=== PATIENT | female | born 1955 | race Caucasian/White ===

== ENCOUNTER 2024-02-18 12:38 | Outpatient (OUT) | payer OTHER, SELFPAY ==
[2024-02-18 12:56] LABS: Basophils Percent Auto 0.3 % (0.2-2.0); Eosinophils Absolute Auto 0.1 10^3/uL (0.0-0.7); Eosinophils Percent Auto 1.2 % (0.9-7.0); Hematocrit 38.3 % (36.0-48.0); Hemoglobin 12.2 g/dL (12.0-16.0); Immature Granulocytes Abs Auto 0.02 10^3/uL (0.00-0.03); Immature Granulocytes Pct Auto 0.3 % (0.0-0.5); Lymphocytes Absolute Auto 1.4 10^3/uL (1.2-3.8); Lymphocytes Percent Auto 22.4 % (20.5-60.0); Mean Corpuscular HGB Conc 31.9 g/dL (29.9-35.2); Mean Corpuscular Hemoglobin 31.1 pg (26.7-34.0); Mean Corpuscular Volume 97.7 fL (81.0-99.0); Mean Platelet Volume 9.8 fL (9.5-13.5); Monocytes Absolute Auto 0.4 10^3/uL (0.3-0.8); Monocytes Percent Auto 6.8 % (1.7-12.0); Neutrophils Absolute Auto 4.4 10^3/uL (1.4-6.5); Platelet Count 351 10^3/uL (150-450); Red Blood Count 3.92 10^6/uL (4.20-5.40); White Blood Count 6.4 10^3/uL (4.0-11.0)
--- NOTE | 2024-02-18 12:57 | CT_ITS ---
The [address] [address] Patient Name: KOLTON HOLLOWAY MRN: [id number] date: 1955 Sex: F Assigned Patient Location: CT Current Patient Location: Accession/Order Number: [id number] Exam Date: 02/18/2024 13:25 Report Date: 02/19/2024 10:57 At the request of: BRIDGER SERRANO Procedure: CT chest w con EXAMINATION: CT chest w con HISTORY: Hemoptysis , Fatigue, Dyspnea COMPARISON: No relevant comparison available. TECHNIQUE: Multi-planar CT images were created with IV contrast. Axial, Coronal, and Sagittal images. Dose reduction techniques were achieved by using automated exposure control and/or adjustment of mA and/or kV according to patient size and/or use of iterative reconstruction technique. FINDINGS: LUNGS: Bilateral multifocal groundglass infiltrates with the largest area in the right upper lobe measuring 7.1 cm by. A few scattered subcentimeter pulmonary nodules the largest measuring 6 x 3 mm, subpleural superior segment of the right lower lobe axial image 46 PLEURA: No mass, effusion, or pneumothorax. VASCULATURE: No abnormality. ALAN: No mass or adenopathy. MEDIASTINUM: No mass or adenopathy. CARDIAC: No enlargement, pericardial thickening, or significant calcification. AORTA: No aneurysm or dissection. CHEST WALL: No mass or axillary adenopathy. BONES: No bone lesion or fracture. LIMITED ABDOMEN: No suspicious findings. Limited images of the upper abdomen. OTHER: Negative. CT/CT chest w con IMPRESSION: Multifocal bilateral infiltrates, consider an atypical or viral pneumonia Electronically authenticated by: ADIS PATEL Date: 02/19/2024 10:57
[2024-02-18 13:13] LABS: Alanine Aminotransferase 16 U/L (14-59); Albumin Globulin Ratio 0.7; Albumin Level 2.8 g/dL (3.4-5.0); Alkaline Phosphatase 90 U/L (46-116); Anion Gap 14.5; Aspartate Amino Transferase 23 U/L (15-37); BUN Creatinine Ratio 9.3; Calcium 9.2 mg/dL (8.5-10.1); Carbon Dioxide 25.3 mmol/L (21.0-32.0); Chloride 103 mmol/L (98-107); Estimated GFR (African America >60 (>=60); Estimated GFR (Non-African Ame 51 (>=60); Globulin 4.2 g/dL; Glucose 94 mg/dL (74-106); Potassium 3.8 mmol/L (3.5-5.1); Sodium 139 mmol/L (136-145)
[2024-02-18 13:22] LABS: Thyroid Stimulating Hormone 1.999 uIU/mL (0.358-3.740)
== END 2024-02-18 12:39 | disposition home or self-care (01) ==
LOC: CT 12:38
PROVIDERS: PCP Internal Medicine; Visit Provider Internal Medicine
DX: R04.2 Hemoptysis (principal); Z79.01 Long term (current) use of anticoagulants; R53.83 Other fatigue; R06.00 Dyspnea, unspecified
CPT/HCPCS: 36415; 71260; 80053; 84443; 85025; Q9967

== ENCOUNTER 2024-09-08 15:17 | Outpatient (OUT) | payer OTHER, SELFPAY ==
--- NOTE | 2024-09-08 15:30 | XR_ITS ---
The [address] [address] Patient Name: KOLTON HOLLOWAY MRN: [id number] date: 1955 Sex: F Assigned Patient Location: [facility] Current Patient Location: Accession/Order Number: [id number] Exam Date: 09/08/2024 15:35 Report Date: 09/10/2024 07:02 At the request of: BRIDGER SERRANO Procedure: XR foot RT min 3V PROCEDURE: XR foot RT min 3V COMPARISON: None. HISTORY: Right Foot Pain, Right Foot Swelling FINDINGS: BONES:Lucency identified along the base of the third metatarsal consistent with a extra-articular nondisplaced fracture. Subtle contour deformity along the base of the second metatarsal likely degenerative change. No dislocation. Osteoarthropathy with joint space narrowing marginal osteophyte formation SOFT TISSUES:Negative. No visible soft tissue swelling. EFFUSION:None visible. OTHER: Negative. XR/XR foot RT min 3V IMPRESSION: Acute transverse extra-articular fracture base of the third metatarsal Electronically authenticated by: ADIS PATEL Date: 09/10/2024 07:02
== END 2024-09-08 15:18 | disposition home or self-care (01) ==
LOC: RAD 15:20
PROVIDERS: PCP Internal Medicine; Visit Provider Internal Medicine
DX: M79.671 Pain in right foot (principal); M79.89 Other specified soft tissue disorders; S92.331A Displaced fracture of third metatarsal bone, right foot, initial encounter for closed fracture
CPT/HCPCS: 73630

== ENCOUNTER 2024-09-16 13:47 | Outpatient (OUT) | payer OTHER, SELFPAY ==
--- NOTE | 2024-09-16 13:54 | CT_ITS ---
The [address] [address] Patient Name: KOLTON HOLLOWAY MRN: [id number] date: 1955 Sex: F Assigned Patient Location: CT Current Patient Location: [facility] Accession/Order Number: [id number] Exam Date: 09/16/2024 13:57 Report Date: 09/18/2024 08:52 At the request of: MARLY ESCALERA Procedure: CT foot RT wo con EXAMINATION: CT foot RT wo con HISTORY: Lisfranc Fracture ; recent fall COMPARISON: XR foot right 09/08/2024 TECHNIQUE: Multi-planar CT images were created without and/or with IV contrast according to examination type. Dose reduction techniques were achieved by using automated exposure control and/or adjustment of mA and/or kV according to patient size and/or use of iterative reconstruction technique. FINDINGS: BONES: Nondisplaced comminuted fractures involving the base of the second, third, and fourth metatarsals. Intra-articular extension involving the second metatarsal. Suspect small nondisplaced fracture involving lateral margin of the base of the first metatarsal. No appreciable fracture of the tarsal bones. No disruption or widening of the interspace between the base of the first and second metatarsals. SOFT TISSUES: Mild dorsolateral soft tissue swelling and edema. EFFUSION: None visible. OTHER: Negative. CT/CT foot RT wo con IMPRESSION: 1. Nondisplaced comminuted fractures involving the base of the second, third, and fourth metatarsals and suspected small proximal corner fracture of the first metatarsal. 2. No widening of the first-second metatarsal interspace or lateral shift of the second through 5th metatarsals. Electronically authenticated by: SOPHIE POOLE Date: 09/18/2024 08:52
== END 2024-09-16 13:48 | disposition home or self-care (01) ==
LOC: CT 13:47
PROVIDERS: PCP Internal Medicine; Visit Provider Physician Assistant
DX: S92.324A Nondisplaced fracture of second metatarsal bone, right foot, initial encounter for closed fracture (principal); S92.334A Nondisplaced fracture of third metatarsal bone, right foot, initial encounter for closed fracture; S92.344A Nondisplaced fracture of fourth metatarsal bone, right foot, initial encounter for closed fracture
CPT/HCPCS: 73700

== ENCOUNTER 2024-09-30 13:01 | Outpatient (OUT) | payer OTHER, SELFPAY ==
--- NOTE | 2024-09-30 13:03 | XR_ITS ---
The [address] [address] Patient Name: KOLTON HOLLOWAY MRN: [id number] date: 1955 Sex: F Assigned Patient Location: [facility] Current Patient Location: Accession/Order Number: [id number] Exam Date: 09/30/2024 13:17 Report Date: 10/03/2024 08:56 At the request of: HARLAN ZAVALA Procedure: XR foot RT min 3V PROCEDURE: XR foot RT min 3V HISTORY: Nondisplaced fracture Metatarsal COMPARISON: XR foot right 09/08/2024 FINDINGS: BONES:Slight increased sclerosis involving the base of the second, third, and fourth metatarsals. SOFT TISSUES:Images were obtained to cast material. No significant soft tissue swelling. EFFUSION:None visible. OTHER: Negative. XR/XR foot RT min 3V IMPRESSION: 1. Images were obtained through cast material which slightly limits evaluation. 2. sclerosis suggestive of early bone healing involving the base of the second, third, and fourth metatarsals. Normal alignment is maintained. Electronically authenticated by: SOPHIE POOLE Date: 10/03/2024 08:56
== END 2024-09-30 13:02 | disposition home or self-care (01) ==
LOC: RAD 13:01
PROVIDERS: PCP Internal Medicine; Visit Provider Podiatrist Foot & Ankle Surgery
DX: S92.334D Nondisplaced fracture of third metatarsal bone, right foot, subsequent encounter for fracture with routine healing (principal); S92.324D Nondisplaced fracture of second metatarsal bone, right foot, subsequent encounter for fracture with routine healing; S92.344D Nondisplaced fracture of fourth metatarsal bone, right foot, subsequent encounter for fracture with routine healing; S92.314D Nondisplaced fracture of first metatarsal bone, right foot, subsequent encounter for fracture with routine healing
CPT/HCPCS: 73630

== ENCOUNTER 2024-10-14 14:42 | Outpatient (OUT) | payer OTHER, SELFPAY ==
--- NOTE | 2024-10-14 | XR_ITS ---
The [address] [address] Patient Name: KOLTON HOLLOWAY MRN: [id number] date: 1955 Sex: F Assigned Patient Location: [facility] Current Patient Location: Accession/Order Number: [id number] Exam Date: 10/14/2024 15:49 Report Date: 10/15/2024 13:11 At the request of: HARLAN ZAVALA Procedure: XR foot RT min 3V PROCEDURE: XR foot RT min 3V COMPARISON: 09/30/2024 HISTORY: RIGHT FOOT PAIN FINDINGS: BONES:Stable healing nondisplaced nonangulated fractures base of the second third and fourth metatarsals. No new fracture or dislocation. Stable degenerative changes with joint space narrowing and marginal osteophyte formation SOFT TISSUES:Negative. No visible soft tissue swelling. EFFUSION:None visible. OTHER: Negative. XR/XR foot RT min 3V IMPRESSION: Stable healing extra-articular fractures base of the second third and fourth metatarsals Electronically authenticated by: ADIS PATEL Date: 10/15/2024 13:11
== END 2024-10-14 14:43 | disposition home or self-care (01) ==
LOC: RAD 14:42
PROVIDERS: PCP Internal Medicine; Visit Provider Podiatrist Foot & Ankle Surgery
DX: S92.334D Nondisplaced fracture of third metatarsal bone, right foot, subsequent encounter for fracture with routine healing (principal); S92.324D Nondisplaced fracture of second metatarsal bone, right foot, subsequent encounter for fracture with routine healing; S92.341D Displaced fracture of fourth metatarsal bone, right foot, subsequent encounter for fracture with routine healing
CPT/HCPCS: 73630

== ENCOUNTER 2024-10-31 10:15 | Outpatient (OUT) | payer OTHER, SELFPAY ==
--- NOTE | 2024-10-31 | XR_ITS ---
The [address] [address] Patient Name: KOLTON HOLLOWAY MRN: [id number] date: 1955 Sex: F Assigned Patient Location: Current Patient Location: Accession/Order Number: [id number] Exam Date: 10/31/2024 10:20 Report Date: 11/03/2024 08:05 At the request of: AHRLAN ZAVALA Procedure: XR foot RT min 3V PROCEDURE: XR foot RT min 3V COMPARISON: 10/14/2024 HISTORY: RIGHT FOOT PAIN FINDINGS: BONES:No acute fracture or dislocation. Stable healing fractures base of the second third and fourth metatarsals SOFT TISSUES:Negative. No visible soft tissue swelling. EFFUSION:None visible. OTHER: Negative. XR/XR foot RT min 3V IMPRESSION: Stable healing metatarsal fractures Electronically authenticated by: ADIS PATEL Date: 11/03/2024 08:05
== END 2024-10-31 10:16 | disposition home or self-care (01) ==
LOC: EC 10:15
PROVIDERS: PCP Internal Medicine; Visit Provider Podiatrist Foot & Ankle Surgery
DX: M79.671 Pain in right foot (principal); S92.324D Nondisplaced fracture of second metatarsal bone, right foot, subsequent encounter for fracture with routine healing; S92.334D Nondisplaced fracture of third metatarsal bone, right foot, subsequent encounter for fracture with routine healing; S92.344D Nondisplaced fracture of fourth metatarsal bone, right foot, subsequent encounter for fracture with routine healing
CPT/HCPCS: 73630